=== PATIENT | male | born 1990 | race Two or more races ===

== ENCOUNTER 2016-07-23 12:10 | Emergency (ER) | payer SELFPAY ==
[~2016-07-23] VITALS: Ht 175.3 cm; Wt 79.8 kg
[2016-07-23 12:22] VITALS: BP 126/71
[2016-07-23] MEDS ORDERED: IBUPROFEN 600 MG TABLET PO ONE ×2 (12:30→12:31)
== END 2016-07-23 13:25 | disposition home or self-care (01) ==
LOC: ER 12:12
DX: S62.91XB Unspecified fracture of right hand, initial encounter for open fracture (principal); W10.8XXA Fall (on) (from) other stairs and steps, initial encounter; Y93.89 Activity, other specified; Y92.89 Other specified places as the place of occurrence of the external cause; Y99.8 Other external cause status
CPT/HCPCS: 29125; 73130; 99284; A4606; Z7610

== ENCOUNTER 2017-03-10 17:58 | Emergency (ER) | payer SELFPAY ==
[~2017-03-10] VITALS: Ht 180.3 cm; Wt 97.1 kg
[2017-03-10 18:17] VITALS: BP 112/60
== END 2017-03-10 19:36 | disposition home or self-care (01) ==
LOC: ER 18:01
DX: S83.92XA Sprain of unspecified site of left knee, initial encounter (principal); X37.1XXA Tornado, initial encounter; Y93.89 Activity, other specified; Y92.89 Other specified places as the place of occurrence of the external cause; Y99.8 Other external cause status
CPT/HCPCS: 73560-TC; A4606; Z7610

== ENCOUNTER 2017-06-12 23:36 | Emergency (ER) | payer SELFPAY ==
[~2017-06-12] VITALS: Ht 175.3 cm; Wt 97.1 kg
[2017-06-12 23:36] VITALS: BP 124/76
[2017-06-13] MEDS ORDERED: KETOROLAC TROMETHAMINE INJ 30 MG/ML VIAL ONE (01:25)
[2017-06-13] MEDS ORDERED: DEXAMETHASONE SOD PHOSPHATE 10 MG/ML VIAL ONE (01:25)
[2017-06-13] MEDS ORDERED: DEXAMETHASONE SOD PHOSPHATE 4 MG/ML VIAL IM ONE (01:30)
[2017-06-13] MEDS ORDERED: KETOROLAC TROMETHAMINE INJ 60 MG/2 ML VIAL IM ONE (01:30)
== END 2017-06-13 01:44 | disposition home or self-care (01) ==
LOC: ER 23:37
DX: M54.42 Lumbago with sciatica, left side (principal); G89.29 Other chronic pain
CPT/HCPCS: 96372 ×2; 99284; A4606; J1100; J1885; Z7610